=== PATIENT | male | born 1970 | race Caucasian/White ===

== ENCOUNTER 2017-01-31 23:17 | Emergency (ER) | payer MEDICAID ==
[~2017-01-31] VITALS: Ht 170.2 cm; Wt 83.9 kg
[2017-01-31 23:17] VITALS: BP_SYST 147
--- NOTE | 2017-01-31 23:17 | NUR ---
Patient to ER bed 1 to gown for evaluation. Side rails up. Report given to Sergey GUTIERRES.
--- NOTE | 2017-01-31 23:20 | NUR ---
Pt came in by BLS for ETOH intoxication. EMS states son called because pt was more altered and vomitted twice. Pt admits he has been on a "six day mcnair". Stated he drank two big bottles of vodka. Pt states he is nauseous, but in no pain. Will continue to monitor. No other injuries or complaints mentioned/noted. No distress noted.
--- NOTE | 2017-01-31 23:20 | NUR ---
ER Dr. Singh at bedside examining patient.
[2017-01-31] MEDS ORDERED: NACL 0.9% 1,000 ML IV ONE (23:24)
[2017-02-01 00:06] LABS: BASOPHILS % (AUTO) 0.9 % (0.0-2.0); EOSINOPHILS % (AUTO) 0.4 % (0.0-4.0); HEMATOCRIT 43.7 % (36-54); HEMOGLOBIN 14.6 g/dL (14.0-18.0); LYMPHOCYTES # (AUTO) 1.6 K/uL (1.0-5.5); LYMPHOCYTES % (AUTO) 33.9 % (20.5-51.5); MEAN CORPUSCULAR HEMOGLOBIN 29 pg (27-31); MEAN CORPUSCULAR HGB CONC 34 % (32-36); MEAN CORPUSCULAR VOLUME 86 fL (79.0-98.0); MONOCYTES # (AUTO) 0.3 K/uL (0.0-1.0); MONOCYTES % (AUTO) 5.7 % (1.7-9.3); NEUTROPHILS # (AUTO) 2.8 K/uL (1.8-7.7); NEUTROPHILS % (AUTO) 59.1 % (40.0-70.0); PLATELET COUNT (AUTO) 269 K/uL (130-430); RED BLOOD CELL COUNT(AUTO) 5.07 MIL/uL (4.2-6.2); RED CELL DISTRIBUTION WIDTH 18.6 % (9.0-15.0); WHITE BLOOD COUNT (AUTO) 4.7 K/uL (4.8-10.8)
[2017-02-01 00:15] LABS: PROTHROMBIN TIME 10.4 SECS (9.5-12.5)
[2017-02-01 00:38] LABS: CALCIUM 8.4 mg/dL (8.4-11.0); CREATININE 0.87 mg/dL (0.55-1.30); POTASSIUM 3.6 mmol/L (3.5-5.1)
[2017-02-01 00:42] LABS: ALBUMIN 3.8 g/dL (3.4-4.8); TOTAL BILIRUBIN 0.7 mg/dL (0.0-1.0); TOTAL PROTEIN, SERUM 7.5 g/dL (6.4-8.3)
--- NOTE | 2017-02-01 01:00 | NUR ---
Pt self removed IV. Bleeding controlled. Dr. Singh made aware.
--- NOTE | 2017-02-01 01:40 | NUR ---
Pt eloped from bed. Dr. Singh made aware.
== END 2017-02-01 01:40 | disposition left against medical advice (07) ==
LOC: SED 23:17
DX: K85.20 Alcohol induced acute pancreatitis without necrosis or infection (principal); F10.129 Alcohol abuse with intoxication, unspecified; Z53.20 Procedure and treatment not carried out because of patient's decision for unspecified reasons
CPT/HCPCS: 36415; 80053; 82150; 83690; 85025; 85610; 85730; 96360; 99284; G0482; J7030

== ENCOUNTER 2017-04-08 17:31 | Emergency (ER) | payer MEDICAID ==
[~2017-04-08] VITALS: Ht 170.2 cm; Wt 70.3 kg
[2017-04-08 17:31] VITALS: BP_SYST 138
--- NOTE | 2017-04-08 17:31 | NUR ---
Pt BIB BLS, placed to ER bed 03. Report given to BHAVIK Mcnair.
--- NOTE | 2017-04-08 17:36 | NUR ---
ER at bedside examining patient.
--- NOTE | 2017-04-08 17:36 | NUR ---
[place] by B[place], found intoxicated and soiled himself. Pt states that he is hungry and tired. No other injuries/complaints per pt or noted.
[2017-04-08] MEDS ORDERED: NACL 0.9% 1,000 ML IV ONE (17:45)
[2017-04-08] MEDS ORDERED: ONDANSETRON HCL 4 MG/2 ML VIAL IVP ONE (17:45)
--- NOTE | 2017-04-08 18:28 | NUR ---
Took off pt's soiled clothes, tried to wipe him down, but pt just washed his face and arms. Security was called and some clothes were brought for the pt. Pt is resting comfortably with a blanket right now and IV hydration is running.
[2017-04-08 19:30] VITALS: BP_SYST 130
--- NOTE | 2017-04-08 19:30 | NUR ---
Patient given written and verbal discharge instructions and verbalizes understanding. ER MD discussed with patient the results and treatment provided. Patient in stable condition. ID arm band removed. IV catheter removed intact and dressing applied, no active bleeding. No Rx given. Patient educated on pain management and to follow up with PMD. Pain Scale 0/10. Opportunity for questions provided and answered.
== END 2017-04-08 19:30 | disposition home or self-care (01) ==
LOC: SED 17:31
DX: F10.129 Alcohol abuse with intoxication, unspecified (principal); Y90.0 Blood alcohol level of less than 20 mg/100 ml
CPT/HCPCS: 96361; 96374; 99284; J2405; J7030

== ENCOUNTER 2017-04-09 08:30 | Emergency (ER) | payer MEDICAID ==
[~2017-04-09] VITALS: Ht 170.2 cm; Wt 77.1 kg
--- NOTE | 2017-04-09 08:31 | NUR ---
PATIENT TO ER BED 4.PER PATIENT HE DRANK TEQUILLA LAST NIGHT AND HAS BEEN VOMITING A LOT.NO COMPLAIN OF PAIN/DISCOMFORT.NO VOMITING AT THIS TIME.NO OTHER COMPLAIN/INJURIES PER PATIENT OR NOTED
--- NOTE | 2017-04-09 08:33 | NUR ---
Arrived via BLS ambulance for vomiting and ETOH intoxication. Patient states that he wants to stop drinking. Patient is noted to have been in the ER yesterday for alcohol intoxication. Patient to ER bed 4 to gown for evaluation. Side rails up. Report given to Fani GUTIERRES.
--- NOTE | 2017-04-09 08:34 | NUR ---
ER at bedside examining patient.
[2017-04-09 08:42] VITALS: BP_SYST 139
[2017-04-09] MEDS ORDERED: ONDANSETRON HCL 4 MG/2 ML VIAL IVP ONE (08:45)
[2017-04-09] MEDS ORDERED: NACL 0.9% 1,000 ML IV ONE (08:45)
--- NOTE | 2017-04-09 09:00 | NUR ---
SERVED BREAKFAST TRAY;TOLERATED FOOD WELL
--- NOTE | 2017-04-09 10:22 | NUR ---
Patient removed his own IV with cath intact and walked out of the door with steady gait without informing staff. I ran out to the patient and confirmed that his IV was out. I discussed discharged information with the patient, however he stated that he did not need the paperwork, also refused to sign. He was ambulatory with steady gait. Stated, "Thank you brother, I'm good." Patient left on foot.
--- NOTE | 2017-04-09 10:25 | NUR ---
PATIENT PULLED OUT HIS IV CANNULA AND LEFT THE FACILITY WITHOUT LETTING THE NURSE KNOW.TOOK ALL PERSONAL BELONGINGS.
== END 2017-04-09 10:26 | disposition home or self-care (01) ==
LOC: SED 08:30
DX: F10.129 Alcohol abuse with intoxication, unspecified (principal); R03.0 Elevated blood-pressure reading, without diagnosis of hypertension
CPT/HCPCS: 96361; 96374; 99284; J2405; J7030

== ENCOUNTER 2017-07-04 23:50 | Emergency (ER) | payer MEDICAID ==
[~2017-07-04] VITALS: Ht 165.1 cm; Wt 79.4 kg
[2017-07-04 23:55] VITALS: BP_SYST 112
[2017-07-05] MEDS ORDERED: BANANA BAG 1 EA, MVI 10 ML, THIAMINE HCL 100 MG, FOLIC ACID 1 MG, MAGNESIUM SULFATE 1 G... IV SCH ×5
[2017-07-05] MEDS ORDERED: LORazepam 2 MG/ML VIAL (FOR ER USE) IVP ONE (00:15)
[2017-07-05] MEDS ORDERED: THIAMINE HCL 100 MG/ML VIAL ONE (00:21)
[2017-07-05] MEDS ORDERED: MAGNESIUM SULFATE 1 GM/2 ML VIAL ONE (00:22)
[2017-07-05] MEDS ORDERED: FOLIC ACID 5 MG/ML VIAL IV ONE (00:22)
[2017-07-05 00:34] LABS: BASOPHILS % (AUTO) 0.6 % (0.0-2.0); EOSINOPHILS # (AUTO) 0.1 K/uL (0.0-0.4); EOSINOPHILS % (AUTO) 2.2 % (0.0-4.0); HEMATOCRIT 43.7 % (36-54); HEMOGLOBIN 14.2 g/dL (14.0-18.0); LYMPHOCYTES # (AUTO) 2.8 K/uL (1.0-5.5); LYMPHOCYTES % (AUTO) 44.1 % (20.5-51.5); MEAN CORPUSCULAR HEMOGLOBIN 31 pg (27-31); MEAN CORPUSCULAR HGB CONC 32 % (32-36); MEAN CORPUSCULAR VOLUME 94 fL (79.0-98.0); MONOCYTES # (AUTO) 0.5 K/uL (0.0-1.0); MONOCYTES % (AUTO) 8.5 % (1.7-9.3); NEUTROPHILS # (AUTO) 2.8 K/uL (1.8-7.7); NEUTROPHILS % (AUTO) 44.6 % (40.0-70.0); PLATELET COUNT (AUTO) 269 K/uL (130-430); RED BLOOD CELL COUNT(AUTO) 4.65 MIL/uL (4.2-6.2); RED CELL DISTRIBUTION WIDTH 17.3 % (9.0-15.0); WHITE BLOOD COUNT (AUTO) 6.2 K/uL (4.8-10.8)
[2017-07-05 00:39] LABS: ANION GAP 9 (5-15); CALCIUM 8.5 mg/dL (8.4-11.0); CHLORIDE 110 mmol/L (98-107); CREATININE 0.93 mg/dL (0.55-1.30); POTASSIUM 4.3 mmol/L (3.5-5.1); SODIUM SERUM 143 mmol/L (136-145); UREA NITROGEN, BLOOD 17 mg/dL (8-21)
[2017-07-05 00:41] LABS: INR 0.9 (0.80-1.20); PROTHROMBIN TIME 10.3 SECS (9.5-12.5)
[2017-07-05 00:44] LABS: ALANINE AMINOTRANSFERASE 42 U/L (12-78); ALBUMIN 3.6 g/dL (3.4-4.8); ALCOHOL, BLOOD 212 mg/dL (<10); TOTAL BILIRUBIN 0.5 mg/dL (0.0-1.0)
[2017-07-05 00:52] LABS: ACETAMINOPHEN < 1 ug/mL (1-30); GFR AFRICAN AMERICAN 114 mL/min (>90)
[2017-07-05 00:53] LABS: GLUCOSE 99 mg/dL (70-99)
[2017-07-05 01:05] LABS: ASPARTATE AMINOTRANSFERASE 31 U/L (10-37)
[2017-07-05 01:28] LABS: AMYLASE 104 U/L (0-100); LIPASE 273 U/L (73-393)
[2017-07-05] MEDS ORDERED: NACL 0.9% 1,000 ML IV ONE (02:15)
[2017-07-05 06:28] VITALS: BP_SYST 114
== END 2017-07-05 06:28 | disposition home or self-care (01) ==
LOC: SED 23:50
DX: F10.229 Alcohol dependence with intoxication, unspecified (principal); Y90.7 Blood alcohol level of 200-239 mg/100 ml; Z88.8 Allergy status to other drugs, medicaments and biological substances
CPT/HCPCS: 36415; 70450; 71010; 80053; 82150; 82550; 83690; 84484; 85025; 85610; 85730; 96365; 96375; 99285; G0480; G0481; G0482; J2060; J3411; J3475; J3490; J7030